=== PATIENT | male | born 1970 | race Caucasian/White ===

== ENCOUNTER 2022-06-02 09:28 | Emergency (ER) | payer OTHER ==
[2022-06-02 09:34] VITALS: BP 140/100; PULSE 81; RESP 20; TEMP 99; BMI 30.9
[2022-06-02] MEDS ORDERED: LIDOCAINE 5% TOPICAL PATCH TP ONE (10:06)
[2022-06-02] MEDS ORDERED: diazePAM 5 MG TABLET PO ONE (10:06)
[2022-06-02] MEDS ORDERED: KETOROLAC TROMETHAMINE 30 MG/1 ML VIAL IM ONE (10:06)
[2022-06-02] MEDS ORDERED: LIDOCAINE 5% TOPICAL PATCH ONE (10:16)
[2022-06-02] MEDS ORDERED: KETOROLAC TROMETHAMINE 30 MG/1 ML VIAL ONE (10:16)
[2022-06-02] MEDS ORDERED: diazePAM 5 MG TABLET ONE (10:16)
[2022-06-02] MEDS ORDERED: LIDOCAINE PATCH REMOVAL MC SCH (22:00)
== END 2022-06-02 12:40 | disposition home or self-care (01) ==
LOC: FER 09:28
PROC: 3E023GC Introduction of Other Therapeutic Substance into Muscle, Percutaneous Approach (ICD-10-PCS; principal; 2022-06-02)
DX: M54.6 Pain in thoracic spine (principal)
CPT/HCPCS: 71046-TC-FY; 71101-TC-RT-FY; 72100-TC-FY; 99284-25